=== PATIENT | male | born 2000 | race American Indian/Alaskan Native ===

== ENCOUNTER 2025-01-06 19:37 | Inpatient (IN) | payer MEDICAID ==
[~2025-01-06] VITALS: Ht 182.9 cm; Wt 83.4 kg
[2025-01-06 20:48] LABS: PLATELET COUNT, AUTOMATED 364 10^3/uL (150-450)
[2025-01-06 20:59] LABS: ETHYL ALCOHOL (ETHANOL) < 0.003 % (0.000-0.010)
[2025-01-06] MEDS ORDERED: DIVA250T67 PO (20:59)
[2025-01-06] MEDS ORDERED: ARIP10TA63 PO (21:00)
[2025-01-06 21:01] LABS: ALT/SGPT 65 U/L (7.0-40); AST/SGOT 26 U/L (<34); CALCIUM LEVEL 10.3 MG/DL (8.5-10.1); CARBON DIOXIDE LEVEL 20 MMOL/L (20-31); CHLORIDE LEVEL 109 MMOL/L (98-107); CREATININE FOR GFR 1.13 MG/DL (0.70-1.30); GLOMERULAR FILTRATION RATE > 90.0 (>60); POTASSIUM SERUM 4.0 MMOL/L (3.5-5.1); SALICYLATE LEVEL < 3.0 MG/DL (<30); SODIUM LEVEL 144 MMOL/L (136-145)
[2025-01-06] MEDS ORDERED: MED REC COMMENT (21:01)
[2025-01-06] MEDS ORDERED: HOME MED LIST COMPLETE! XX SCH (21:05)
[2025-01-06 21:09] LABS: AMPHETAMINES LEVEL URINE NEGATIVE (NEGATIVE)
[2025-01-06 21:10] LABS: BARBITURATES URINE NEGATIVE (NEGATIVE); BENZODIAZEPINES URINE NEGATIVE (NEGATIVE); COCAINE METABOLITE URINE NEGATIVE (NEGATIVE); METHADONE URINE NEGATIVE (NEGATIVE); OPIATES URINE NEGATIVE (NEGATIVE); PHENCYCLIDINE URINE NEGATIVE (NEGATIVE)
[2025-01-06 21:19] LABS: CANNABINOIDS URINE POSITIVE (NEGATIVE)
[2025-01-06] MEDS: hydroCHLOROthiazide 25 MG TAB PO ONE (21:23)
[2025-01-06] MEDS ORDERED: traZODone 50 MG TAB PO PRN (23:45)
[2025-01-06] MEDS ORDERED: ACETAMINOPHEN 325 MG TAB PO PRN (23:45)
[2025-01-06] MEDS ORDERED: IBUPROFEN 400 MG TAB PO PRN (23:45)
[2025-01-06] MEDS ORDERED: MAALOX 30 ML SUSP *UDC PO PRN (23:45)
[2025-01-06] MEDS ORDERED: MOM 30 ML SUSPENSION UDC PO PRN (23:45)
[2025-01-07 16:01] VITALS: BP 168/100; TEMP 97.3; O2SAT 98
[2025-01-07] MEDS: traZODone 50 MG TAB PO SCH (20:43)
[2025-01-07] MEDS: DIVALPROEX 500 MG *ER* TAB PO SCH (20:47)
[2025-01-07 21:17] VITALS: BP 168/100; TEMP 97.3; O2SAT 98
[2025-01-08 06:38] VITALS: BP 134/82; TEMP 98.2; O2SAT 100
[2025-01-08 16:17] VITALS: BP 138/96; TEMP 98.9; O2SAT 98
[2025-01-09 06:26] VITALS: BP 153/104; TEMP 97.9; O2SAT 100
[2025-01-09 06:56] VITALS: BP 136/94
[2025-01-09 14:39] VITALS: BP 152/98; TEMP 98.1; O2SAT 99
[2025-01-09] MEDS: traZODone 100 MG TAB PO SCH (21:11)
[2025-01-10] MEDS ORDERED: **hydrALAZINE HCL** 25 MG TAB PO PRN (09:55)
[2025-01-10 10:15] VITALS: BP 140/96
[2025-01-10 15:43] VITALS: BP 142/84; TEMP 98.6; O2SAT 98
[2025-01-11 06:39] VITALS: BP 137/72; TEMP 97.3
[2025-01-11 08:02] VITALS: BP 135/81
[2025-01-11] MEDS: amLODIPine 5 MG TAB PO SCH (08:04)
[2025-01-11] MEDS: DIVALPROEX 250 MG TAB PO SCH (10:03)
[2025-01-11 16:07] VITALS: BP 141/82; TEMP 98.9; O2SAT 99
[2025-01-12 08:56] VITALS: BP 135/82
[2025-01-12 14:42] VITALS: BP 148/86; TEMP 98.2; O2SAT 99
[2025-01-13 06:26] VITALS: BP 133/80; TEMP 98.4; O2SAT 100
[2025-01-13 15:10] VITALS: BP 140/90; TEMP 97.4; O2SAT 99
[2025-01-14 06:21] VITALS: BP 133/85; TEMP 98.2; O2SAT 98
[2025-01-14 16:25] VITALS: BP 148/76; TEMP 97.7; O2SAT 99
[2025-01-15 06:40] VITALS: BP 156/83; TEMP 98.1; O2SAT 99
[2025-01-15] MEDS ORDERED: AMLO1TAB24 PO (08:18)
[2025-01-15] MEDS ORDERED: DEPA500T2 PO (08:18)
[2025-01-15] MEDS ORDERED: ABIL10TA9 PO (08:18)
[2025-01-15] MEDS ORDERED: DIVA-65 PO (08:18)
[2025-01-15] MEDS ORDERED: TRAZ-257 PO (08:18)
[2025-01-15 08:32] VITALS: BP 147/90
== END 2025-01-15 12:06 | disposition home or self-care (01) | DRG 753 ==
LOC: M ED 19:37 → M ED INP 23:44 → M PSY 01-07 00:47
PROVIDERS: ADMIT Student in an Organized Health Care Education/Training Program; ATTEND Student in an Organized Health Care Education/Training Program
DX: F31.64 Bipolar disorder, current episode mixed, severe, with psychotic features (principal); F41.1 Generalized anxiety disorder; F41.0 Panic disorder [episodic paroxysmal anxiety]; Z91.148 Patient's other noncompliance with medication regimen for other reason; I10 Essential (primary) hypertension; Z79.899 Other long term (current) drug therapy